=== PATIENT | female | born 1940 | race African-American/Black ===

== ENCOUNTER → 2017-02-03 | Outpatient (CLI) | payer MEDICARE, OTHER ==
--- NOTE | ~2017-02-03 | CR58 ---
[facility] A Service of [facility] & [facility] RADIOLOGY TEXT RESULTS PATIENT: MAURA AVENDAÑO LOCATION: [facility] : 44 UNIT #: [id number] AGE: [address]: Jass Murillo MD SEX: F ORDER DR: [id number] [facility] [address] [place] [place], [place] [address] [id number] O MR#: [id number] Acc #: [id number] NAME: MAURA AVENDAÑO : 1940 SEX: F STUDY DATE/TIME: 02/03/2017 16:02 UNIT: [facility] ROOM: STUDY DESCRIPTION: CR Cervical Spine 2 or 3 Views Attending Physician: Jass Murillo M.D. Ordering Physician: Shannon Araujo A.P.R.N. Primary Care Physician: Leonardo Gomez M.D. MEDICAL IMAGING REPORT This report is preliminary unless electronic signature is present EXAM Cervical spine series HISTORY Neck pain that radiates to both arms with paresthesias. Symptoms chronically over the past 6 years but worsening. TECHNIQUE 3 views of the cervical spine were obtained. FINDINGS There is moderate degenerative change seen at C3-4 with disc space narrowing and both anterior posterior osteophytes. There is mild disc space narrowing at C2-3 and C4-5. At C4-5 there is a slight degenerative retrolisthesis and a small anterior osteophyte. At C5-6 degenerative disc disease is moderate with disc space narrowing and anterior osteophyte formation. C6-7 and C7-T1 are not as well seen because of thickness through the shoulders but alignment is satisfactory. No acute bony abnormalities are seen and no prevertebral soft tissue swelling is noted. IMPRESSION Multilevel generally [id number] cervical degenerative disc disease as described above [id number]. No acute bony abnormalities are seen. Dictated by... Pee Cook M.D. THIS IS AN ELECTRONICALLY VERIFIED REPORT Pee Cook M.D. at 02/04/2017 3:48 PM ARIANA/samantha TD: 02/04/2017 08:30 JOB #: [id number] [facility] A Service of [facility] & [facility] RADIOLOGY TEXT RESULTS PATIENT: MAURA AVENDAÑO LOCATION: [facility] #: [id number] : [birth year] UNIT #: [id number] AGE: [address]: Jass Murillo MD SEX: F ORDER DR: MEDICAL IMAGING REPORT Page 1 of 1 COPY
--- NOTE | ~2017-02-03 | US128 ---
[id number] [facility]. [facility] [address] [place], [place] [address] [id number] O MR#: [id number] Acc #: [id number] NAME: MAURA AVENDAÑO : 1940 SEX: F STUDY DATE/TIME: 02/03/2017 16:47 UNIT: [facility] ROOM: STUDY DESCRIPTION: US Thyroid Attending Physician: Jass Murillo M.D. Ordering Physician: Jass Murillo M.D. Primary Care Physician: Leonardo Gomez M.D. MEDICAL IMAGING REPORT This report is preliminary unless electronic signature is present EXAM Thyroid ultrasound. DATE OF STUDY 02/03/2017 COMPARISON None. CLINICAL HISTORY Follow up thyroid nodule. FINDINGS Redemonstrated solid-appearing right thyroid nodule measuring 1.7 x 1.6 x 1.4 cm unchanged since the ultrasound of July 2016. There is a left lower pole thyroid nodule as well, measured at about 10 x 9 x 10 mm, probably unchanged since the prior exam as well. Comparison also made to 01/26/2016. The right lobe dominant nodule appears stable in size, as does the left lower pole nodule. IMPRESSION Stable, solid right lobe thyroid nodule about 1.7 x 1.6 x 1.4 cm in size. It is unchanged since at least January 2016. No new nodules are demonstrated. Dictated by... Ayo Vora M.D. THIS IS AN ELECTRONICALLY VERIFIED REPORT Ayo Vora M.D. at 02/04/2017 3:52 PM CIARA/joby TD: 02/04/2017 15:41 JOB #: [id number] MEDICAL IMAGING REPORT Page 1 of 1 COPY
== END | disposition home or self-care (01) ==
LOC: CGUS 15:03
DX: E04.1 Nontoxic single thyroid nodule (principal); M48.02 Spinal stenosis, cervical region; M43.12 Spondylolisthesis, cervical region; M50.322 Other cervical disc degeneration at C5-C6 level; M47.812 Spondylosis without myelopathy or radiculopathy, cervical region
CPT/HCPCS: 72040; 76536